=== PATIENT | male | born 1945 | race Caucasian/White ===

== ENCOUNTER → 2023-09-04 12:37 | Outpatient (CLI) | payer MEDICARE, SELFPAY ==
--- NOTE | 2023-09-04 12:44 | XR_ITS ---
FINAL REPORT CLINICAL HISTORY: lateral foot pain FINDINGS: LEFT FOOT Three views of the left foot demonstrate no acute fracture or dislocation. The visualized joint spaces are normally aligned. There is a moderate plantar spur. Donovan deformity is noted. The soft tissues are unremarkable. IMPRESSION: No acute bony abnormality. Reviewed, Interpreted and Dictated by Alexis Quiñones MD Transcribed by Coretta Martinez Authenticated and . [facility]
--- NOTE | 2023-09-04 12:44 | XR_ITS ---
FINAL REPORT CLINICAL HISTORY: lateral foot pain FINDINGS: RIGHT FOOT 3 views of the right foot were obtained. There is no acute fracture or dislocation. Visualized joint spaces are normally aligned. There are mild hypertrophic changes of the first MTP joint. A small plantar calcaneal spur is seen. There is a small calcification/ossification at the Achilles tendon which may be related to old trauma. Soft tissues are unremarkable. IMPRESSION: No acute bony abnormality. Reviewed, Interpreted and Dictated by Alexis uQiñones MD Transcribed by Coretta Martinez Authenticated and [facility]
== END ==
PROVIDERS: PCP Family Medicine; Visit Provider Podiatrist
DX: M79.671 Pain in right foot (principal); M79.672 Pain in left foot
CPT/HCPCS: 73630